=== PATIENT | male | born 1995 | race Caucasian/White ===

== ENCOUNTER 2019-06-29 20:10 | Emergency (ER) | payer MEDICAID, OTHER ==
[2019-06-29] MEDS: LIDOCAINE 1% (MDV) 20 ML INJ SC (22:14)
[2019-06-29] MEDS: KETOROLAC 60 MG INJ IM (23:28)
== END 2019-06-30 00:11 | disposition home or self-care (01) ==
LOC: FTE 06-30 00:11
DX: S62.336A Displaced fracture of neck of fifth metacarpal bone, right hand, initial encounter for closed fracture (principal); S62.334A Displaced fracture of neck of fourth metacarpal bone, right hand, initial encounter for closed fracture; W50.0XXA Accidental hit or strike by another person, initial encounter; Y92.9 Unspecified place or not applicable
CPT/HCPCS: 29125; 73110-RT; 73130-RT; 96372; 99284-25